=== PATIENT | male | born 2000 | race Caucasian/White ===

== ENCOUNTER 2020-04-26 20:47 | Emergency (ER) | payer BC ==
[2020-04-27 01:00] LABS: HEMOGLOBIN 15.5 gm/dl (14.0-17.5); RED BLOOD COUNT 5.13 M/UL (4.20-5.50); WHITE BLOOD COUNT 11.6 K/UL (4.5-11.0)
[2020-04-27 01:19] LABS: BUN/CREATININE RATIO 12 (0-10)
== END 2020-04-27 01:57 | disposition home or self-care (01) ==
LOC: ER1 20:47
PROVIDERS: Physician Assistant
DX: R25.1 Tremor, unspecified (principal); Z88.0 Allergy status to penicillin
CPT/HCPCS: 70450; 80053; 82550; 82553; 83874; 84439; 84443; 85025; 86140; 96372; 99284; J1100